=== PATIENT | female | born 1965 | race Caucasian/White ===

== ENCOUNTER 2022-08-23 08:13 | Emergency (ER) | payer BC ==
[~2022-08-23] VITALS: Ht 157.5 cm; Wt 61.2 kg
[2022-08-23 08:30] VITALS: BP_SYST 108
--- NOTE | 2022-08-23 08:54 | NUR ---
Patient to ER bed 04 to gown for evaluation. Side rails up.
--- NOTE | 2022-08-23 08:55 | NUR ---
Pt drove herself from home c/o back pain s/p fall this morning. Pt states pain is 10/10 and required wheelchair assistance from the parking lot to the ED upon arrival. Pt is A&Ox4, showing signs of severe discomfort. Denies medical history. Care to be provided as ordered.
[2022-08-23] MEDS ORDERED: ONDANSETRON 4 MG ODT TAB PO ONE (09:00)
[2022-08-23] MEDS ORDERED: MORPHINE 4 MG INJ. 4 MG/ML VIAL IM ONE (09:00)
--- NOTE | 2022-08-23 09:02 | NUR ---
ER Dr. Douglass at bedside examining patient.
--- NOTE | 2022-08-23 09:54 | NUR ---
Pt was observed ambulating to bathroom with slow, steady gait. provided support. [facility] without incident.
[2022-08-23] MEDS ORDERED: HYDR-3917 PO (10:50)
[2022-08-23] MEDS ORDERED: SOM350 PO (10:50)
[2022-08-23] MEDS ORDERED: NAPR-688 PO (10:50)
[2022-08-23 11:04] VITALS: BP_SYST 110
--- NOTE | 2022-08-23 11:07 | NUR ---
Patient given written and verbal discharge instructions and verbalizes understanding. ER DR. TAMMY LEWIS discussed with patient the results and treatment provided. Patient in stable condition. ID arm band removed. IV catheter removed intact and dressing applied, no active bleeding. Rx of HYDROCODONE, SOMA, NAPROXEN given. Patient educated on pain management and to follow up with PMD. Pain Scale 6/10. Opportunity for questions provided and answered. Medication side effect fact sheet provided.
== END 2022-08-23 11:05 | disposition home or self-care (01) ==
LOC: SED 08:13
DX: S30.1XXA Contusion of abdominal wall, initial encounter (principal); M54.50 Low back pain, unspecified; Z79.899 Other long term (current) drug therapy; W10.8XXA Fall (on) (from) other stairs and steps, initial encounter; Y93.89 Activity, other specified; Y92.89 Other specified places as the place of occurrence of the external cause; Y99.8 Other external cause status
CPT/HCPCS: 99284; 72100; 96372; Q0162; J2270